=== PATIENT | female | born 1990 | race African-American/Black ===

== ENCOUNTER 2017-05-23 07:32 | Emergency (ER) | payer OTHER ==
[~2017-05-23] VITALS: Ht 157.5 cm; Wt 49.9 kg
[2017-05-23 07:36] VITALS: BP 115/77
[2017-05-23] MEDS ORDERED: Acetaminophen 500mg (ES) tab ORAL ONE (08:00)
[2017-05-23] MEDS ORDERED: ACETAMINOPHEN500 M3 ORAL (09:10)
[2017-05-23] MEDS ORDERED: IBUPROFEN400 M1 PO (09:10)
[2017-05-23 09:14] VITALS: BP 120/78
[2017-05-23 09:18] LABS: APPEARANCE,URINE CLOUDY; BILIRUBIN, URINE NEGATIVE (NEGATIVE); GLUCOSE, URINE (UA) NEGATIVE (NEGATIVE); KETONES,URINE NEGATIVE (NEGATIVE); LEUKOCYTE ESTERASE ,URINE 1+ (NEGATIVE); NITRITE,URINE NEGATIVE (NEGATIVE); PH,URINE 6 (4.5-8.0); PROTEIN,URINE 2+ (NEGATIVE); UROBILINOGEN,URINE 1 MG/DL (0.0-1.0)
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
[2017-05-23 09:31] LABS: COLOR,URINE YELLOW
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
== END 2017-05-23 09:15 | disposition home or self-care (01) ==
LOC: EMR 07:45
DX: S30.1XXA Contusion of abdominal wall, initial encounter (principal); W22.03XA Walked into furniture, initial encounter; Y92.009 Unspecified place in unspecified non-institutional (private) residence as the place of occurrence of the external cause; R31.9 Hematuria, unspecified
CPT/HCPCS: 81003; 81025; 99284